=== PATIENT | female | born 1960 | race Caucasian/White ===

== ENCOUNTER → 2016-07-02 | Outpatient (CLI) | payer OTHER ==
[2016-07-02 09:49] LABS: ASPARTATE AMINO TRANSFERASE 32 IU/L (8-39); BILIRUBIN,TOTAL 0.7 mg/dL (0.3-1.2); BLOOD UREA NITROGEN 15 mg/dL (7-22); BUN/CREATININE RATIO 21.42 (6-20); CALCIUM 9.7 mg/dL (8.7-10.7); CHLORIDE 103 meq/L (98-112); CREATININE 0.7 mg/dL (0.50-1.20); EST GLOMERULAR FILTRATION > 60 (>60 ml/min/1.73m(2)); GLUCOSE 96 mg/dL (78-110); HDL CHOLESTEROL 46 mg/dL (40-150); POTASSIUM 3.7 meq/L (3.8-5.2); SODIUM 143 meq/L (135-145); TOTAL PROTEIN 8.1 g/dL (6.1-8.0); TRIGLYCERIDES 146 mg/dL (44-200)
[2016-07-02 10:37] LABS: FREE T4 (FREE THYROXINE) 0.82 ng/dL (0.93-1.71)
== END ==
LOC: LAB 08:54
PROVIDERS: ATTEND Family Medicine
DX: R94.6 Abnormal results of thyroid function studies (principal); E78.5 Hyperlipidemia, unspecified; B19.20 Unspecified viral hepatitis C without hepatic coma
CPT/HCPCS: 36415; 80053; 80061; 82248; 84439; 84443; 87522

== ENCOUNTER → 2016-07-12 | Outpatient (CLI) | payer OTHER ==
--- NOTE | 2016-07-12 11:24 | DI ---
XR ABDOMEN (KUB) FLAT GabriellaVIEW,07/12/2016 10:31 AM: Clinical History: Right upper quadrant abdominal pain. Previous Exam: None at this facility. Findings: 2 views of the abdomen and pelvis are obtained, and demonstrate a large amount of dried stool through out the colon. Skeletal structures are unremarkable. There are no pathologic calcifications and no fractures. The ayden ng bases are clear. Impression: Large amount of dried stool throughout the colon otherwise unremarkable.
== END ==
LOC: MOB RAD 10:45
PROVIDERS: ATTEND Family Medicine
DX: R10.11 Right upper quadrant pain (principal)
CPT/HCPCS: 74000

== ENCOUNTER 2018-07-14 07:05 | Inpatient (IN) ==
[2018-07-14] MEDS ORDERED: Sodium Chloride 0.9% 1,000 ML PRIMARY IV ONE ×2 (07:29→07:54)
[2018-07-14 08:16] LABS: BASOPHILS # (AUTO) 0.01 10*3/UL; BASOPHILS % (AUTO) 0.1 % (0-1); EOSINOPHILS # (AUTO) 0 10*3/UL; EOSINOPHILS % (AUTO) 0 % (0-8); Hematocrit [HCT] 41.7 % (37.0-47.0); Hemoglobin [HGB] 14.8 g/dL (12.0-16.0); LYMPHOCYTES # (AUTO) 1.54 10*3/uL; MEAN CORPUSCULAR HEMOGLOBIN 34.2 PG (27-31); MEAN CORPUSCULAR HGB CONC 35.5 g/dL (33-37); MEAN CORPUSCULAR VOLUME 96.3 FL (81-99); MONOCYTES # (AUTO) 1.02 10*3/UL (0.3-0.8); MONOCYTES % (AUTO) 5.2 % (5-15); NEUTROPHILS # (AUTO) 17.11 10*3/UL; NEUTROPHILS % (AUTO) 86.6 % (50-80); PLATELET MORPHOLOGY COMMENT NORMAL MORPHOLOGY (NORM); RBC MORPHOLOGY COMMENT NORMAL MORPHOLOGY (NORM); RED BLOOD COUNT 4.33 10^6/uL (4.20-5.40); WBC MORPHOLOGY COMMENT NORMAL MORPHOLOGY (NORM)
[2018-07-14] MEDS ORDERED: LORazepam 2 MG/1 ML VIAL IVP ONE (08:22)
[2018-07-14 08:32] LABS: BLOOD UREA NITROGEN 14 mg/dL (7-22); BUN/CREATININE RATIO 23.33 (6-20); SERUM ALBUMIN 4.7 g/dL (3.5-4.8)
--- NOTE | 2018-07-14 09:21 | DI ---
CT Abdomen/Pelvis W Contrast,07/14/2018 7:55 AM: Clinical History: Left lower quadrant abdominal pain and rectal bleeding. Previous Exam: None at this facility. Findings: Multiple helically acquired CT images are obtained through the abdomen and pelvis following intraveno us demonstration contrast, and demonstrate multiple thickened loops of colon involving the splenic fl exure, the descending colon and sigmoid colon. Pancreas is unremarkable. The adrenals are normal. The gallbladder and liver are unremarkable. There are multiple bilateral subcentimeter renal cysts too small to characterize. There is a large cy st 3 cm simple cyst in the interpolar region of the left kidney. There is no free air nor free fluid. A few shotty mesenteric lymph nodes are identified. Large and small bowel loops are normal. Anterior abdominal wall and subcutaneous fat is normal. A few peripheral vascular calcifications are seen. Impression: Thickening and inflammatory changes of the entire distal colon from the splenic flexure to the rectum . This is most consistent with colitis. Correlate clinically and recommend colonoscopy for further ev aluation.
[2018-07-14] MEDS ORDERED: CloNIDine Tab 0.1 MG TABLET PO ONE ×2 (09:44→09:54)
[2018-07-14 09:51] LABS: BILIRUBIN,URINE NEGATIVE (NEG); CLARITY,URINE CLEAR (CLEAR); COLOR,URINE YELLOW (Y); GLUCOSE, URINE (UA) NEGATIVE (NEG); OCCULT BLOOD,URINE NEGATIVE (NEG); PROTEIN,URINE NEGATIVE (NEG)
[2018-07-14 10:00] LABS: URINE SAMPLE TYPE CLEAN CATCH URINE
--- NOTE | 2018-07-14 10:21 | PDOC ---
GI Bleed/Rectal Complaint HPI - General Chief Complaint: Abdomen Pain Stated Complaint: blood in stool; lower abdominal discomfort Date Seen by Provider: 07/14/18 Time Seen by Provider: 07:30 Source: POSITIVE: Patient, Spouse Exam Limitations: POSITIVE: No limitations Nurse's Notes Reviewed & Considered: Yes - History of Present Illness Initial Comments: The patient is a 57-year-old female. She states that approximately 12 hours ago she began to have some blood in her stool. She states her bowel movements have been small but frequent and that there is some dark red blood in her bowel movements. She states that in the past 12 hours she's had about "10 bowel movements ". She also had 2 episodes of vomiting. She complains of some lower abdominal cramping. She last ate around 1700 and had some watermelon. No fevers or chills. No melena. No urinary symptoms. Patient has a history of hepatitis C, hypertension, hypothyroidism, bipolar disorder and PTSD and anxiety. She's had a hysterectomy. Is 4 para 2 aborta 2. Body Location Affected: REPORTS: Abdomen, Other (Rectal bleeding) Timing: REPORTS: Intermittent Duration: <24 hours (Approximately 12 hours) Severity: Moderate Quality: REPORTS: Cramping, Other (Lower abdominal cramping) Context: REPORTS: None Associated Symptoms: REPORTS: Rectal Bleeding w/o Stool, LLQ Abdominal Pain Last BM (Date): 07/14/18 Number of Episodes of Diarrhea (in past 24hrs): 12 Similar Symptoms Previously: No Recent Care Received: REPORTS: Denies Any Prior Injuries Related to Current Complaint?: No - Patient Home Medications Home Medications: Home Medications albuterol sulfate HFA 90 mcg/actuation aerosol inhaler 1 - 2 puff INH Q4-6H #1 inhaler 02/04/17 cefuroxime axetil 500 mg tablet 500 mg PO bid #20 tab 06/01/17 quetiapine 200 mg tablet 200 mg PO QHS #30 tab 06/01/17 doxycycline hyclate 100 mg capsule 100 mg PO Q12H #20 cap 06/10/17 diltiazem CD 240 mg capsule,extended release 24 hr 240 mg PO DAILY #30 cap 03/01 levothyroxine 25 mcg tablet 25 mcg PO DAILY #30 tab 03/01/18 sertraline 50 mg tablet 50 mg PO DAILY #30 tab 03/01/18 simvastatin 10 mg tablet 10 mg PO DAILY #30 tab 03/01/18 - Patient Allergies Allergies/Adverse Reactions: Allergies Allergy/AdvReac Type Severity Reaction Status Date / Time promethazine HCl Allergy Severe dystonic Verified 07/14/18 10:15 [From Phenergan] Penicillins Allergy Intermediate RASH Verified 07/14/18 10:15 Sulfa (Sulfonamide Allergy Intermediate rash Verified 07/14/18 10:15 Antibiotics) Past Medical History - heen HEENT History: Glaucoma, Other (please comment) Additional HEENT History: hearing loss Cardiovascular History: Hypertension, Hyperlipidemia Respiratory History: Snoring Gastrointestinal History: Hepatitis Additional Gastrointestinal History: HEP C Genitourinary History: Denies History Endocrine History: Denies History Musculoskeletal History: Denies History Neurological History: Denies History Blood Disorders: Denies History Psychiatric History: Depression, Bi Polar Disorder, Substance Abuse, PTSD History of Sexually Transmitted Diseases: No Female Reproductive History: Hysterectomy Cancer History: Denies History In Past Year Been Physically Harmed or Verbally Threatened: No History of MDRO: Unknown History of Other Communicable Diseases: No Tobacco Use: Current Every Day Smoker Alcohol Use: Heavy In the Past 12 Months, Have Used or Abuse Any Substance: None, Other (please comment) Previous Surgical History: Yes Type / Date of Surgery: HYSTERECTOMY Anesthesia Reactions: No Significant Family History: No pertinent family hx, Other (please comment) Additional Family History: ALCOHOL ABUSE Past Medical History Reviewed: Reviewed - No Changes ROS - Limitations ROS Limitations: No Limitations Constitution: REPORTS: Denies Symptoms Cardiovascular: REPORTS: Denies Cardiac Symptoms Respiratory: REPORTS: Denies Resp Symptoms Neurological: REPORTS: Denies Neuro Symptoms Gastrointestinal: REPORTS: Abdominal Pain, Bloody Stools Endocrine: REPORTS: Denies Symptoms Musculoskeletal: REPORTS: Denies MS Symptoms Genitourinary: REPORTS: Denies Symptoms Eyes: REPORTS: Denies Symptoms ENT: REPORTS: Denies Symptoms Skin: REPORTS: Denies Skin Symptoms Lympathic: REPORTS: Denies Lympathic Symptoms Immunologic: POSITIVE: Denies Symptoms Psychiatric: POSITIVE: Denies Psych Symptoms GI Bleed / Rectal Complaint PE - General Appearance General Appearance: POSITIVE: Alert, Cooperative, No Acute Distress - HEENT HEENT: POSITIVE: Head Inspection Nml, Eyes Inspection Nml, Ears Inspection Nml, Nose Inspection Nml, Oral/Dental Inspect. Nml, Pharynx Inspect. Nml, PERRL, EOMI - Neck Neck: POSITIVE: Normal Inspection, No Apparent Injury - Respiratory Respiratory: POSITIVE: No Respiratory Distress, Breath Sounds Normal, Chest Non- Tender - Cardiovascular Cardiovascular: POSITIVE: Regular Rate and Rhythm, Heart Sounds Normal, Equal Pulses, Strong Pulses Peripheral Pulses: Radial (R): 2+, Radial (L): 2+ - Abdomen Abdomen: Soft: (All Quadrants), Normal Bowel Sounds: (All Quadrants), Denies Tenderness: (RLQ), (LUQ), (RUQ), No Splenomegaly: (All Quadrants), No Hepatomegaly: (All Quadrants), No Guarding: (All Quadrants), No Rebound: (All Quadrants), No Palpable Pulse: (All Quadrants), No Palpabale Mass: (All Quadrants), No Distention: (All Quadrants), No Rigidity: (All Quadrants), Tenderness Noted: (LUQ) - Genital / Rectal Rectal: POSITIVE: Non-Tender, Bloody Stool, Gross Blood Present, Heme Positive Stool. NEGATIVE: Heme Negative Stool, Black Stool, Blood-Streaked Stool, Trace Heme Positive Stool, Ext Thrombosed Hemorrhoid, Ext. Ruptured Hemorrhoid, Ext. Inflamed Hemorrhoid, Ext. Bleeding Hemorrhoid, Rectal Pain on Exam, Prostate Pain on Exam, Unable to do Digital Exam - Skin Skin: POSITIVE: Color Normal, No Rash, Warm, Dry - Extremities Extremity: Non-Tender: (All Extremities), Normal ROM: (All Extremities), Normal Inspection: (All Extremities) - Neurological / Psychological Neurological: POSITIVE: Affect Apporpriate, Oriented X3, application dba Normal As Tested, Motor Normal, Sensation Normal Images - Complete Complete: 1 - Discomfort on palpation GI Bleed / Rectal Progress - Results Reviewed by me Xrays/CTs/US Reviewed by me: Yes Discussed with Radiologist: Yes Radiology Findings: "Thickening and inflammatory changes of the entire distal colon from the splenic flexure to rectum " Lab Results Reviewed by Me: Yes Lab Results:: Laboratory Results 07/14/18 07/14/18 07/14/18 07:34 07:40 07:40 WBC RBC Hgb Hct MCV MCH MCHC RDW Std Deviation RDW Coeff of Susanna Plt Count MPV Immature Gran % (Auto) Neut % (Auto) Lymph % (Auto) Stewart % (Auto) Eos % (Auto) Baso % (Auto) Immature Gran # (Auto) Neut # (Auto) Lymph # (Auto) Stewart # (Auto) Eos # (Auto) Baso # (Auto) WBC Morphology Comment Plt Morphology Comment RBC Morph Comment Sodium 139 Potassium 3.6 L Chloride 104 Carbon Dioxide 23 Anion Gap 12 BUN 14 Creatinine 0.6 Estimated GFR > 60 BUN/Creatinine Ratio 23.33 H Glucose 134 H Calculated Osmolality 290.0 Calcium 9.8 Total Bilirubin 0.8 AST 50 H ALT 52 Alkaline Phosphatase 88 Total Protein 8.5 H Albumin 4.7 Globulin 3.8 Albumin/Globulin Ratio 1.20 L Amylase 37 Lipase Ur Collection Type Urine Color Urine Clarity Urine pH Ur Specific Smoot Urine Protein Urine Glucose (UA) Urine Ketones Urine Occult Blood Urine Nitrate Urine Bilirubin Urine Urobilinogen Ur Leukocyte Esterase Ur Culture Indicated? Blood Type A POSITIVE Antibody Screen Negative 07/14/18 07/14/18 07/14/18 07:40 07:54 09:44 WBC 19.73 H RBC 4.33 Hgb 14.8 Hct 41.7 MCV 96.3 MCH 34.2 H MCHC 35.5 RDW Std Deviation 41.6 RDW Coeff of Susanna 12.1 Plt Count 289 MPV 9.0 Immature Gran % (Auto) 0.3 Neut % (Auto) 86.6 H Lymph % (Auto) 7.8 L Stewart % (Auto) 5.2 Eos % (Auto) 0 Baso % (Auto) 0.1 Immature Gran # (Auto) 0.05 Neut # (Auto) 17.11 Lymph # (Auto) 1.54 Stewart # (Auto) 1.02 H Eos # (Auto) 0 Baso # (Auto) 0.01 WBC Morphology Comment Normal morphology Plt Morphology Comment Normal morphology RBC Morph Comment Normal morphology Sodium Potassium Chloride Carbon Dioxide Anion Gap BUN Creatinine Estimated GFR BUN/Creatinine Ratio Glucose Calculated Osmolality Calcium Total Bilirubin AST ALT Alkaline Phosphatase Total Protein Albumin Globulin Albumin/Globulin Ratio Amylase Lipase 40 Ur Collection Type Clean catch urine Urine Color Yellow Urine Clarity Clear Urine pH 7.0 Ur Specific Smoot 1.010 Urine Protein Negative Urine Glucose (UA) Negative Urine Ketones Negative Urine Occult Blood Negative Urine Nitrate Negative Urine Bilirubin Negative Urine Urobilinogen 1.0 Ur Leukocyte Esterase Negative Ur Culture Indicated? Culture not set Blood Type Antibody Screen CBC and BMP: 07/14/18 07:54 07/14/18 07:40 - Patient's Progress Pain Medication Addressed: POSITIVE: Patient Refused School/Work Release Addressed: POSITIVE: Not Applicable Re-Examine Time:: 09:50 Re-Examine Comment: Results of laboratory testing and radiology studies discussed with patient and her . Patient advised that she has colitis. Admission recommended. Case discussed with Dr. Orta, surgeon and , hospitalist, and patient is admitted for further evaluation and treatment. Status: POSITIVE: Unchanged, Re-Examined - Consult Consult (If Yes, Name of Consulting MD & Time Called): Yes (Dr. Orta, surgeon and Dr. Ortega, hospitalist, [id number],) Consulting MD will see pt:: [place] [facility] [place] Counseled: POSITIVE: Patient, Family, RE: Lab Results, RE: Radiology Results, RE: DX, RE: Need for F/U Patient Care Time - Estimated PCT Patient Care Time (In Minutes): 60 Vital Signs - Recent Vital Signs Vital Signs: Vital Signs (Last 8 hours) Temp Pulse Resp BP Pulse Ox 07/14/18 08:46 198/109 07/14/18 07:21 98.1 F 82 20 204/120 93 - VS Reviewed Vital Signs Reviewed: Yes Discharge Clinical Impression: Colitis Discharge Disposition: Admit to Inpatient Follow Up With: ASHLI DOWD [Primary Care Provider] - Date Decision to Admit to Inpatient: 07/14/18 Time Decision to Admit to Inpatient: 09:50
--- NOTE | 2018-07-14 11:07 | CONSULT ---
Consult Note - Consult Consult Date: 07/14/18 Reason for Consult: PreOp Consulation : General Surgery Requesting Physician: Dr. Larsen and Dr. Ortega Primary Care Provider: Dion Curtis MD - History of Present Illness History of Present Illness: This is a 57-year-old female who developed a one-day history of abdominal pain. Patient states that she developed crampy pain yesterday evening. The like she needs to have bowel movements but clinic. Today she passed blood in the stools. She has never had this happen before. She rates her pain a 2 out of 10. She is on well water. Patient by chart was on recent antibiotics. Review of Systems - Constitutional Constitutional: REPORTS: Negative System Review - Integumentary Integumentary: REPORTS: Negative System Review - Ear/Nose Exam Ear/Nose Exam: REPORTS: Negative System Review - Respiratory Respiratory: REPORTS: Negative System Review - Cardiovascular Cardiovascular: REPORTS: Negative System Review - Gastrointestinal Gastrointestinal / Abdominal: REPORTS: Nausea, Abdominal Pain, Bloody Stool - Genitourinary Genitourinary: REPORTS: Negative System Review - Musculoskeletal Musculoskeletal: REPORTS: Negative System Review - Hematlogic / Lymphatic Hematologic / Lymphatic: REPORTS: Negative System Review - Neurological Neurologic: REPORTS: Negative System Review - Psychiatric Psychiatric: REPORTS: Negative System Review Past Medical History Medical History: Hypertension. Smoking. Hypothyroidism Tobacco Use: Current Every Day Smoker In the Past 12 Months, Have Used or Abuse Any of the Following Substance: None, Other (please comment) Medication / Allergies Home Medications: Home Medications Medication Instructions Recorded Confirmed Type albuterol sulfate HFA 90 1 - 2 puff INH Q4-6H #1 inhaler 02/04/17 07/14/18 Rx mcg/actuation aerosol inhaler cefuroxime axetil 500 mg tablet 500 mg PO bid #20 tab 06/01/17 07/14/18 Rx quetiapine 200 mg tablet 200 mg PO QHS #30 tab 06/01/17 07/14/18 Rx doxycycline hyclate 100 mg capsule 100 mg PO Q12H #20 cap 06/10/17 Rx diltiazem CD 240 mg 240 mg PO DAILY #30 cap 03/01/18 07/14/18 Rx capsule,extended release 24 hr levothyroxine 25 mcg tablet 25 mcg PO DAILY #30 tab 03/01/18 07/14/18 Rx sertraline 50 mg tablet 50 mg PO DAILY #30 tab 03/01/18 07/14/18 Rx simvastatin 10 mg tablet 10 mg PO DAILY #30 tab 03/01/18 07/14/18 Rx Allergies/Adverse Reactions: Allergies Allergy/AdvReac Type Severity Reaction Status Date / Time promethazine HCl Allergy Severe dystonic Verified 07/14/18 10:15 [From Phenergan] Penicillins Allergy Intermediate RASH Verified 07/14/18 10:15 Sulfa (Sulfonamide Allergy Intermediate rash Verified 07/14/18 10:15 Antibiotics) Results - Labs CBC and BMP: 07/14/18 07:54 07/14/18 07:40 Exam - Vitals Vital Signs: Vital Signs Temperature 98.1 F Pulse Rate [Pulse Oximeter] 82 Respiratory Rate 20 Blood Pressure [Left Arm] 198/109 Pulse Ox 93 Oxygen Delivery Method Room Air Height 5 ft 9 in Weight 150 lb - General General Appearance: No Acute Distress, Cooperative - Head Head Exam: Normal Inspection, Normocephalic - Eye Eye Exam: POSITIVE: PERRL, EOMI - Neck Neck Exam: Full ROM - Respiratory Respiratory Exam: POSITIVE: Clear to Auscultation - Bilaterally, Breathing Non Labored - Cardiovascular Cardiovascular Exam: POSITIVE: No Murmur - GI/Abdominal GI/Abdominal Exam: POSITIVE: Normal Bowel Sounds, Non Distended, Soft Additional GI/Abdominal Exam Details: She has left-sided tenderness but no rebound. - Rectal Rectal Exam: POSITIVE: Deferred Assessment and Plan - Patient Problems (1) Colitis Current Visit: Yes Status: Acute Code(s): K52.9 - Noninfective gastroenteritis and colitis, unspecified - Assessment / Plan Additional Assessment/Plan Details: The present time I think the most likely diagnosis is infectious colitis. With a history of antibiotic use she may have C. difficile. Patient is been admitted started on Cipro and Flagyl until the stool cultures come back. Patient may need a colonoscopy in the near future. I did talk to Dr. Larsen and Dr. Ortega prior to and after seeing the patient
[2018-07-14] MEDS ORDERED: CALCIUM CARBONATE 500 MG (TUMS) CHEWABLE TABLET PO PRN (11:21)
[2018-07-14] MEDS ORDERED: ACETAMINOPHEN 325 MG TABLET PO PRN (11:21)
[2018-07-14] MEDS ORDERED: LIDOCAINE W/ SODIUM BICARB 0.5 ML SYR SUBD PRN (11:21)
[2018-07-14] MEDS ORDERED: HYDROmorphone 2 MG/1 ML IVP PRN (11:21)
[2018-07-14] MEDS ORDERED: ONDANSETRON 4 MG/2 ML VIAL IVP PRN (11:21)
[2018-07-14] MEDS ORDERED: DOCUSATE 100 MG CAPSULE PO PRN (11:21)
[2018-07-14] MEDS ORDERED: metroNIDAZOLE 500mg (Premix) 500 MG/100 ML BAG IV SCH (13:00)
[2018-07-14] MEDS ORDERED: HYDRALAZINE 20 MG/1 ML IVP PRN (13:34)
--- NOTE | 2018-07-14 13:36 | PDOC ---
HPI - History of Present Illness Date of Service: 07/14/18 Time of Service: 11:00 Chief Complaint: Abdominal pain and rectal bleeding History of Present Illness: This very pleasant 57-year-old female with cirrhosis, alcohol abuse, bipolar disorder, hypertension, tobacco abuse, who presents with onset of rectal bleeding and abdominal pain that started last night. This started around 7:00 or so. Last night. She called the ambulance and they checked her blood pressure and it was normal and she didn't seem to have any other problems so she did not transport to the emergency room. The pain started up again and she had rectal bleeding and she came in for evaluation. She had a CT scan that showed inflammatory changes from the splenic flexure to the rectum. I discussed with surgery and they felt that it was most consistent with an infectious colitis. The patient denies any recent antibiotic use. She denies any fevers or chills. She did have nausea and vomiting. She has never had anything like this happen before. She has not had any prior colonoscopy. She does not know her family history as she is adopted. She did not really take a lot of pain medications in the emergency room and we gave her antibiotics on the floor including Rocephin and Flagyl and we have ordered a GI biofire study to try and figure out if we can see whether there could be an infectious agent. She admittedly smokes and drinks alcohol but states that she quit as of yesterday. It is unknown if she has diverticular disease. I am told by the emergency room physician that the blood is "brick red", and the patient states the rectal examination was done in the emergency room. Past Medical History Medical History: 1. Hypertension. 2. Tobacco abuse. 3. Chronic hepatitis C without prior treatment. 4. Alcohol abuse/use. 5. Hypercholesterolemia Surgical History: 1. Prior hysterectomy with bilateral salpingo-oophorectomy Pertinent Family History: She does not know her family history as she is adopted Past Social History: . Works for [employer] in [place]. Has 2 sons described as healthy. Smokes and admits to drinking 2 glasses of DrAnh Pepper and vodka daily Tobacco Use: Current Every Day Smoker In the Past 12 Months, Have Used or Abuse Any of the Following Substance: None Alcohol Use: Heavy Medication / Allergies Home Medications: Home Medications Medication Instructions Recorded Confirmed Type diltiazem CD 240 mg 240 mg PO DAILY #30 cap 03/01/18 07/14/18 Rx capsule,extended release 24 hr levothyroxine 25 mcg tablet 25 mcg PO DAILY #30 tab 03/01/18 07/14/18 Rx sertraline 50 mg tablet 50 mg PO DAILY #30 tab 03/01/18 07/14/18 Rx simvastatin 10 mg tablet 10 mg PO DAILY #30 tab 03/01/18 07/14/18 Rx Allergies/Adverse Reactions: Allergies Allergy/AdvReac Type Severity Reaction Status Date / Time promethazine HCl Allergy Severe dystonic Verified 07/14/18 11:22 [From Phenergan] Penicillins Allergy Intermediate RASH Verified 07/14/18 11:22 Sulfa (Sulfonamide Allergy Intermediate rash Verified 07/14/18 11:22 Antibiotics) Review of Systems - Review of Systems All Systems: Reviewed & No Additional Complaints Except as Stated (I did a 12 point review systems and it was negative other than that discussed below and in the history of present illness.) - Musculoskeletal Musculoskeletal: REPORTS: Joint Pain - Hands (Patient complains of chronic arthritis symptoms in her right hand) Exam - Vitals Vital Signs: Vital Signs Temperature 98.2 F Temperature Source Temporal Artery Scan Pulse Rate [Pulse Oximeter] 82 Pulse Rate 86 Respiratory Rate 16 Blood Pressure [Left Arm] 198/109 Blood Pressure 190/110 Pulse Ox 94 Oxygen Delivery Method Room Air Height 5 ft 9 in Weight 149 lb - General General Appearance: No Acute Distress, Cooperative - Head Head Exam: Normal Inspection, Normocephalic, Atraumatic - Eye Eye Exam: POSITIVE: No Scleral Icterus - ENT ENT Exam: POSITIVE: Mucous Membranes Moist - Neck Neck Exam: JVP is not Raised - Respiratory Respiratory Exam: POSITIVE: Clear to Auscultation - Bilaterally, Breathing Non Labored, Normal to Percussion and Palpation - Cardiovascular Cardiovascular Exam: POSITIVE: RRR, No Murmur, No Clicks, No Gallops, No Rubs, No JVD - GI/Abdominal GI/Abdominal Exam: POSITIVE: Normal Bowel Sounds, Non Tender, Non Distended, Soft - Rectal Rectal Exam: POSITIVE: Deferred (Done in the emergency room) - External Exam: POSITIVE: Deferred Exam: POSITIVE: Deferred - Extremities Extremities Exam: POSITIVE: No Clubbing Present, No Edema Present, No Cyanosis Present - Back Back Exam: POSITIVE: No CVA Tenderness - Neurological Neurological Exam: POSITIVE: Alert, Oriented x 3, No Facial Droop, Speech Intact / Clear, Moves All Extremities Equally - Psychiatric Psychiatric Exam: POSITIVE: Anxious Additional Psychiatric Exam Details: She denies any homicidal or suicidal ideation Results - Labs CBC and BMP: 07/14/18 07:54 07/14/18 07:40 Additional Lab Results: Laboratory Results 07/14/18 07/14/18 07/14/18 07:34 07:40 07:40 WBC RBC Hgb Hct MCV MCH MCHC RDW Std Deviation RDW Coeff of Susanna Plt Count MPV Immature Gran % (Auto) Neut % (Auto) Lymph % (Auto) [place] % (Auto) Eos % (Auto) Baso % (Auto) Immature Gran # (Auto) Neut # (Auto) Lymph # (Auto) [place] # (Auto) Eos # (Auto) Baso # (Auto) WBC Morphology Comment Plt Morphology Comment RBC Morph Comment PT 10.7 INR 1.05 APTT 25.1 Sodium 139 Potassium 3.6 L Chloride 104 Carbon Dioxide 23 Anion Gap 12 BUN 14 Creatinine 0.6 Estimated GFR > 60 BUN/Creatinine Ratio 23.33 H Glucose 134 H Calculated Osmolality 290.0 Lactic Acid Calcium 9.8 Total Bilirubin 0.8 AST 50 H ALT 52 Alkaline Phosphatase 88 Total Protein 8.5 H Albumin 4.7 Globulin 3.8 Albumin/Globulin Ratio 1.20 L Amylase 37 Lipase Ur Collection Type Urine Color Urine Clarity Urine pH Ur Specific [place] Urine Protein Urine Glucose (UA) Urine Ketones Urine Occult Blood Urine Nitrate Urine Bilirubin Urine Urobilinogen Ur Leukocyte Esterase Ur Culture Indicated? Blood Type Antibody Screen 07/14/18 07/14/18 07/14/18 07:40 07:40 07:54 WBC 19.73 H RBC 4.33 Hgb 14.8 Hct 41.7 MCV 96.3 MCH 34.2 H MCHC 35.5 RDW Std Deviation 41.6 RDW Coeff of Susanna 12.1 Plt Count 289 MPV 9.0 Immature Gran % (Auto) 0.3 Neut % (Auto) 86.6 H Lymph % (Auto) 7.8 L [place] % (Auto) 5.2 Eos % (Auto) 0 Baso % (Auto) 0.1 Immature Gran # (Auto) 0.05 Neut # (Auto) 17.11 Lymph # (Auto) 1.54 [place] # (Auto) 1.02 H Eos # (Auto) 0 Baso # (Auto) 0.01 WBC Morphology Comment Normal morphology Plt Morphology Comment Normal morphology RBC Morph Comment Normal morphology PT INR APTT Sodium Potassium Chloride Carbon Dioxide Anion Gap BUN Creatinine Estimated GFR BUN/Creatinine Ratio Glucose Calculated Osmolality Lactic Acid Calcium Total Bilirubin AST ALT Alkaline Phosphatase Total Protein Albumin Globulin Albumin/Globulin Ratio Amylase Lipase 40 Ur Collection Type Urine Color Urine Clarity Urine pH Ur Specific [place] Urine Protein Urine Glucose (UA) Urine Ketones Urine Occult Blood Urine Nitrate Urine Bilirubin Urine Urobilinogen Ur Leukocyte Esterase Ur Culture Indicated? Blood Type A POSITIVE Antibody Screen Negative 07/14/18 07/14/18 09:44 11:21 WBC RBC Hgb Hct MCV MCH MCHC RDW Std Deviation RDW Coeff of Susanna Plt Count MPV Immature Gran % (Auto) Neut % (Auto) Lymph % (Auto) [place] % (Auto) Eos % (Auto) Baso % (Auto) Immature Gran # (Auto) Neut # (Auto) Lymph # (Auto) [place] # (Auto) Eos # (Auto) Baso # (Auto) WBC Morphology Comment Plt Morphology Comment RBC Morph Comment PT INR APTT Sodium Potassium Chloride Carbon Dioxide Anion Gap BUN Creatinine Estimated GFR BUN/Creatinine Ratio Glucose Calculated Osmolality Lactic Acid 1.3 Calcium Total Bilirubin AST ALT Alkaline Phosphatase Total Protein Albumin Globulin Albumin/Globulin Ratio Amylase Lipase Ur Collection Type Clean catch urine Urine Color Yellow Urine Clarity Clear Urine pH 7.0 Ur Specific [place] 1.010 Urine Protein Negative Urine Glucose (UA) Negative Urine Ketones Negative Urine Occult Blood Negative Urine Nitrate Negative Urine Bilirubin Negative Urine Urobilinogen 1.0 Ur Leukocyte Esterase Negative Ur Culture Indicated? Culture not set Blood Type Antibody Screen - Imaging Status: Image Reviewed by Me (I looked at the abdominal CT scan. I read the report there is inflammatory change from the sigmoid flexure through the descending colon.) Assessment and Plan - Patient Problems (1) Colitis Current Visit: Yes Status: Acute Code(s): K52.9 - Noninfective gastroenteritis and colitis, unspecified (2) Chronic hepatitis C Current Visit: Yes Status: Chronic Code(s): B18.2 - Chronic viral hepatitis C Qualifiers: Hepatic coma status: without hepatic coma Qualified Code(s): B18.2 - Chronic viral hepatitis C (3) Alcohol abuse Current Visit: Yes Status: Acute Code(s): F10.10 - Alcohol abuse, uncomplicated (4) Tobacco use disorder Current Visit: No Status: Acute Onset Date: 10/14/11 Code(s): F17.200 - Nicotine dependence, unspecified, uncomplicated (5) Depressed bipolar I disorder Current Visit: No Status: Acute Onset Date: 10/14/11 Code(s): F31.9 - Bipolar disorder, unspecified (6) Hypertension Current Visit: Yes Status: Acute Code(s): I10 - Essential (primary) hypertension Qualifiers: Hypertension type: essential hypertension Qualified Code(s): I10 - Essential (primary) hypertension (7) Hypercholesterolemia Current Visit: Yes Status: Acute Code(s): E78.00 - Pure h ypercholesterolemia, unspecified - Assessment / Plan Additional Assessment/Plan Details: Admit the patient, consult surgery who is seen the patient already. We will manage this with antibiotics, I will start Rocephin and Flagyl as C. difficile certainly is in the differential. We are waiting stool studies to try and determine an etiology. Clear liquids for now, and prep for colonoscopy on Tuesday for colonoscopy to be done Tuesday. The differential still could be infectious colitis/ischemic colitis/diverticulitis although diverticulitis seems less likely with large segment of intestine inflamed. Inflammatory bowel disease could certainly be a possibility, ulcerative colitis comes to mind. Likely biopsies will guide further care at the time of colonoscopy. We will give medications for blood pressure to try and bring the blood pressure down. I'm going to hold off on additional fluids as the patient does look euvolemic right now. Labs in a.m. including lactic acid. Full code. I have medications written for pain and nausea. I discussed the above plan with the patient and she agreed.
[2018-07-14] MEDS ORDERED: Levofloxacin (Premix) 750 MG/150 ML PIGGYBACK IV SCH (14:00)
[2018-07-14] MEDS ORDERED: Sodium Chloride 0.9% 100 ML IV ONE ×2 (16:49→17:30)
[2018-07-14] MEDS ORDERED: Sodium Chloride 0.9% 100 ML IV PRN (16:56)
[2018-07-14] MEDS: Sodium Chloride 0.9% 1,000 ML PRIMARY IV SCH (19:15)
[2018-07-14] MEDS: LORazepam Inj(ETOH withdrawal) 2 MG/ML VIAL IVP PRN ×2 (20:37→22:38)
[2018-07-14] MEDS ORDERED: QUEtiapine Tab 100 MG TAB PO SCH (21:00)
[2018-07-15 05:23] LABS: BASOPHILS # (AUTO) 0.02 10*3/UL; BASOPHILS % (AUTO) 0.1 % (0-1); EOSINOPHILS # (AUTO) 0.02 10*3/UL; EOSINOPHILS % (AUTO) 0.1 % (0-8); Hematocrit [HCT] 39.4 % (37.0-47.0); Hemoglobin [HGB] 13.5 g/dL (12.0-16.0); LYMPHOCYTES # (AUTO) 3.18 10*3/uL; MEAN CORPUSCULAR HEMOGLOBIN 33.4 PG (27-31); MEAN CORPUSCULAR HGB CONC 34.3 g/dL (33-37); MEAN CORPUSCULAR VOLUME 97.5 FL (81-99); MEAN PLATELET VOLUME 9.4 FL (7.4-12.2); MONOCYTES # (AUTO) 1.65 10*3/UL (0.3-0.8); MONOCYTES % (AUTO) 8.4 % (5-15); NEUTROPHILS # (AUTO) 14.78 10*3/UL; RED BLOOD COUNT 4.04 10^6/uL (4.20-5.40)
[2018-07-15] MEDS ORDERED: LEVOTHYROXINE 25 MCG TABLET PO SCH (05:30)
[2018-07-15 05:46] LABS: BLOOD UREA NITROGEN 11 mg/dL (7-22); BUN/CREATININE RATIO 18.33 (6-20)
[2018-07-15 05:57] LABS: PLATELET MORPHOLOGY COMMENT NORMAL MORPHOLOGY (NORM); RBC MORPHOLOGY COMMENT NORMAL MORPHOLOGY (NORM); WBC MORPHOLOGY COMMENT NORMAL MORPHOLOGY (NORM)
[2018-07-15] MEDS: Sodium Chloride 0.9% 1,000 ML PRIMARY IV SCH (08:57)
[2018-07-15] MEDS ORDERED: PANTOPRAZOLE IV 40 MG VIAL IVP SCH (09:00)
[2018-07-15] MEDS ORDERED: Simvastatin Tab 10 MG TAB PO SCH (09:00)
[2018-07-15] MEDS ORDERED: DILTIAZEM CD 240 MG CAP PO SCH (09:00)
[2018-07-15] MEDS ORDERED: Sertraline Tab 50 MG TAB PO SCH (09:00)
[2018-07-15] MEDS ORDERED: Levofloxacin 750 MG / 30 ML VIAL IV SCH (09:00)
[2018-07-15 09:42] VITALS: BP 175/100; RESP 22; TEMP 99.1
[2018-07-15] MEDS: LORazepam Inj(ETOH withdrawal) 2 MG/ML VIAL IVP PRN (09:44)
[2018-07-15] MEDS ORDERED: METOPROLOL SUCCINATE 25 MG SR 24H TABLET PO ONE (10:01)
[2018-07-15 11:13] VITALS: O2SAT 94
--- NOTE | 2018-07-15 12:26 | DCSUMMARY ---
Hospitalization Summary Admit Date: 07/14/2018 Discharge Date: 07/15/18 Primary Diagnosis:: Escherichia coli Shiga toxin diarrhea, resolved Hospital Course: This very pleasant 57-year-old female that surprisingly got better very quickly in the setting of an Escherichia coli bacteria induced diarrhea. She had the H70 157 Shiga toxin producing strain. The patient was managed with IV fluids through the hospital stay, and her creatinine was 0.6 at the time of discharge. Her symptoms got better, her nausea and vomiting completely resolved, and she stated that she had only 1 episode of diarrhea today and it was quite minimal she stated and she felt like she could maintain hydration at home and wanted to go home. I did advise her that she could stay another 24 hours a week and continue fluid support, but she felt some much better, that she wished to go home. Given that clinically she is euvolemic, is not having any nausea or vomiting, and has no evidence to suggest that she would be decompensated by going home early and no evidence of hemolytic uremic syndrome or other complications of a diarrheal illness like this, I think it would be okay for her to do that and is just a very fast recovery. This is a situation where I anticipated that she would need an inpatient stay but she just got better very quickly. We will avoid any colonoscopy for this illness given the findings on the GI PCR workup. We will have the patient follow with surgery for a screening colonoscopy given her age in the next few months. I instructed the patient to follow with her primary physician for clearing her to go back to work in terms of her diarrheal illness. We gave her plenty of information on the diarrheal illness in terms of reading material and advised her good handwashing. I told her no anti-inflammatories. We will not use antibiotics for this. She is not having any chest pain or shortness breath and wishes home. She denies any abdominal pain. She states it is all resolved. She states that her diarrhea frequency has significantly improved. Blood pressure is noted to be elevated so we did prescribe new blood pressure medications as well as antiemetics. Assessment and Plan: 1. As per discharge assessments noted 2. Disposition: Patient is discharged home. 3. Condition on discharge, stable and improved. 4. Diet: regular diet 5. Activities: resume normal activities, but not cleared to go back to work until she sees her primary physician and has no further blood in the diarrhea. 6. Follow-Up: 1. Dr. Curtis next week 2. Dr. Ornelas 3 months for screening colonoscopy 7. Medications at the Time of Discharge: Home Medications Medication Instructions Recorded Confirmed Type diltiazem CD 240 mg 240 mg PO DAILY #30 cap 03/01/18 07/14/18 Rx capsule,extended release 24 hr levothyroxine 25 mcg tablet 25 mcg PO DAILY #30 tab 03/01/18 07/14/18 Rx sertraline 50 mg tablet 50 mg PO DAILY #30 tab 03/01/18 07/14/18 Rx simvastatin 10 mg tablet 10 mg PO DAILY #30 tab 03/01/18 07/14/18 Rx Enalapril Maleate [Vasotec] 5 mg PO DAILY #30 tablet 07/15/18 Rx Ondansetron Odt [Zofran ODT] 4 mg PO Q6H #10 tab.rapdis 07/15/18 Rx 8. Time, care, counseling and coordination of care for this discharge is less than 30 minutes. Exam - Vitals Vital Signs: Vital Signs Temperature 99.1 F Temperature Source Temporal Artery Scan Pulse Rate [Pulse Oximeter] 94 Pulse Rate 90 Respiratory Rate 22 Blood Pressure [Right Arm] 171/86 Blood Pressure [Left Arm] 193/113 Blood Pressure 175/100 Pulse Ox 94 Oxygen Flow Rate 2 Oxygen Delivery Method Room Air Height 5 ft 9 in Weight 149 lb - General General Appearance: No Acute Distress, Cooperative - Eye Eye Exam: POSITIVE: No Scleral Icterus - ENT ENT Exam: POSITIVE: Mucous Membranes Moist - Neck Neck Exam: JVP is not Raised - Respiratory Respiratory Exam: POSITIVE: Clear to Auscultation - Bilaterally - Cardiovascular Cardiovascular Exam: POSITIVE: RRR, No Murmur, No Clicks, No Gallops, No Rubs, No JVD - GI/Abdominal GI/Abdominal Exam: POSITIVE: Normal Bowel Sounds, Non Tender, Non Distended, Soft - Extremities Extremities Exam: POSITIVE: No Clubbing Present, No Edema Present, No Cyanosis Present - Neurological Neurological Exam: POSITIVE: Alert, Oriented x 3, No Facial Droop, Speech Intact / Clear, Moves All Extremities Equally Data Peritnent Studies: 07/14/18 07/14/18 07/14/18 07:34 07:40 07:40 WBC Hgb Hct Plt Count PT 10.7 INR 1.05 APTT 25.1 Sodium Potassium Chloride Carbon Dioxide Anion Gap BUN Creatinine BUN/Creatinine Ratio Glucose Calculated Osmolality Lactic Acid Calcium Total Bilirubin 0.8 AST 50 H ALT 52 Alkaline Phosphatase 88 Total Protein 8.5 H Albumin 4.7 Globulin 3.8 Albumin/Globulin Ratio 1.20 L Amylase 37 Lipase 07/14/18 07/15/18 07/15/18 07:40 04:50 04:50 WBC 19.70 H Hgb 13.5 Hct 39.4 Plt Count 263 PT INR APTT Sodium Potassium Chloride Carbon Dioxide Anion Gap BUN Creatinine BUN/Creatinine Ratio Glucose Calculated Osmolality Lactic Acid 0.7 Calcium Total Bilirubin AST ALT Alkaline Phosphatase Total Protein Albumin Globulin Albumin/Globulin Ratio Amylase Lipase 40 07/15/18 04:50 WBC Hgb Hct Plt Count PT INR APTT Sodium 136 Potassium 4.0 Chloride 106 Carbon Dioxide 23 Anion Gap 7 BUN 11 Creatinine 0.6 BUN/Creatinine Ratio 18.33 Glucose 103 Calculated Osmolality 280.0 Lactic Acid Calcium 9.1 Total Bilirubin AST ALT Alkaline Phosphatase Total Protein Albumin Globulin Albumin/Globulin Ratio Amylase Lipase Procedures: [address] [place] [address] PH: DD: [phone] FAX: [phone] ~DIAGNOSTIC IMAGING REPORT~ Patient: ITALIA HERNÁNDEZ : 1960 Sex: F Age: 57 Exam Name: CT Abdomen/Pelvis W Contrast Exam Date: 07/14/18 Report # : [id number] CPT Code: 71551 EMR/MR #: [id number] Ordering: YOU DALEY Admiting: Primary: Dion Curtis MD Attending: Signed CT Abdomen/Pelvis W Contrast,07/14/2018 7:55 AM: Clinical History: Left lower quadrant abdominal pain and rectal bleeding. Previous Exam: None at this facility. Findings: Multiple helically acquired CT images are obtained through the abdomen and pel vis following intravenous demonstration contrast, and demonstrate multiple thickened loops of colon involving the splenic flexure, the descending colon and sigmoid colon. Pancreas is unremarkable. The adrenals are normal. The gallbladder and liver are unremarkable. There are multiple bilateral subcentimeter renal cysts too small to characterize. There is a large cyst 3 cm simple cyst in the interpolar region of the left kidney. There is no free air nor free fluid. A few shotty mesenteric lymph nodes are identified. Large and small bowel loops are normal. Anterior abdominal wall and subcutaneous fat is normal. A few peripheral vascular calcifications are seen. Impression: Thickening and inflammatory changes of the entire distal colon from the splenic flexure to the rectum. This is most consistent with colitis. Correlate clinically and recommend colonoscopy for further evaluation. Dictated By: 07/14/18 0914 CANDIDA ADAMS MD. Signed By: 07/14/18 0921 CANDIDA ADAMS MD. Patient Problems - Patient Problem List (1) Colitis Current Visit: Yes Status: Acute Code(s): K52.9 - Noninfective gastroenteritis and colitis, unspecified Category: Medical (2) Chronic hepatitis C Current Visit: Yes Status: Chronic Code(s): B18.2 - Chronic viral hepatitis C Qualifiers: Hepatic coma status: without hepatic coma Qualified Code(s): B18.2 - Chronic viral hepatitis C Category: Medical (3) Alcohol abuse Current Visit: Yes Status: Acute Code(s): F10.10 - Alcohol abuse, uncomplicated Category: Medical (4) Tobacco use disorder Current Visit: No Status: Acute Onset Date: 10/14/11 Code(s): F17.200 - Nicotine dependence, unspecified, uncomplicated Category: Medical (5) Depressed bipolar I disorder Current Visit: No Status: Acute Onset Date: 10/14/11 Code(s): F31.9 - Bipolar disorder, unspecified Category: Medical (6) Hypertension Current Visit: Yes Status: Acute Code(s): I10 - Essential (primary) hy pertension Qualifiers: Hypertension type: essential hypertension Qualified Code(s): I10 - Essential (primary) hypertension Category: Medical (7) Hypercholesterolemia Current Visit: Yes Status: Acute Code(s): E78.00 - Pure hypercholesterolemia, unspecified Category: Medical (8) Dysentery Current Visit: Yes Status: Acute Code(s): A09 - Infectious gastroenteritis and colitis, unspecified Category: Medical
[2018-07-16] MEDS ORDERED: METOPROLOL SUCCINATE 25 MG SR 24H TABLET PO SCH (09:00)
== END 2018-07-15 14:07 | disposition home or self-care (01) | DRG 868 ==
LOC: ER 07:05 → MED/SURG 11:08
PROVIDERS: ADMIT Family Medicine; ATTEND Family Medicine